=== PATIENT | male | born 1985 | race African-American/Black ===

== ENCOUNTER 2021-05-03 19:33 | Emergency (ER) | payer SELFPAY ==
[2021-05-03 19:34] VITALS: BP 126/86; PULSE 95; RESP 16; TEMP 37.7; O2SAT 97; BMI 23.1
[2021-05-03 19:35] VITALS: BP 126/86; PULSE 95; RESP 16; TEMP 37.7; O2SAT 97
--- NOTE | 2021-05-03 21:54 | ED.VIS.DENTA ---
HPI History of Present Illness Chief Complaint: Dental Informant: patient Narrative Narrative: Patient here significant other increasing swelling left lower jaw over the last 2 days. Fever today. Does have cavities. Denies hot or cold sensitivities. Currently does not have a dentist. Denies allergies. Prior similar symptoms: No PFSH PFSH Medical History no medical history Home Medications hydrocodone-acetaminophen 1 tab PO Q6H PRN 3 Days #12 tab 05/03/21 [Rx Last Taken Unknown] ibuprofen 600 mg PO Q6H PRN PRN #20 tab 05/03/21 [Rx Last Taken Unknown] penicillin V potassium 500 mg PO 4X/DAY #40 tab 05/03/21 [Rx Last Taken Unknown] Allergy/AdvReac Type Severity Reaction Status Date / Time No Known Allergies Allergy Verified 05/03/21 19:36 Surgical History no surgical history Social History Smoking Status: Current every day smoker tobacco type: cigarettes ROS ROS ED Constitutional Constitutional ED: Reports fever(s); Denies chills or sweats Eyes Eyes: Denies change in vision ENT ENT ED: Reports other Details: Left lower jaw swelling ; Denies dysphagia or sore throat Cardiovascular Cardiovascular: Denies chest pain, leg edema, palpitations or racing heartbeat Respiratory/Chest Respiratory/Chest: Denies cough, dyspnea or dyspnea on exertion Gastrointestinal Gastrointestinal: Denies abdominal pain, diarrhea, nausea or vomiting Genitourinary Genitourinary ED: Denies dysuria, hematuria or urinary frequency Musculoskeletal Musculoskeletal: Denies back pain, extremity pain or neck pain Integumentary Denies rash or wounds Neurologic Neurologic: Denies headache(s), paresthesias or weakness EXAM Physical Exam Const Vital Signs: 05/03/21 19:34 05/03/21 19:35 Temperature 100 F H 100 F H Temperature Source Temporal Temporal Pulse Rate 95 95 Respiratory Rate 16 16 Blood Pressure 126/86 H 126/86 H Blood Pressure Mean 99 99 Pulse Ox 97 97 Oxygen Delivery Method Room Air Room Air Positive well nourished and well developed General Appearance ED: well developed and NAD HEENT Reports moist mucous membranes HEENT Narrative: Swelling left lower jaw at mandibular angle. Oral examination noted focal dental decay tooth #18 and 19 down to the gumline. There is a large fluctuance noted at the gumline of tooth #19 tender to palpation. No sublingual edema. No trismus. normocephalic and atraumatic Eyes PERRL, EOMs intact bilaterally and conjunctivae normal General Eye ED: Yes normal appearance of both eyes Neck no lymphadenopathy and supple General: Negative for tenderness Chest Wall Chest: Negative for tenderness Resp normal respiratory effort and normal air movement Effort and Inspection: symmetric chest movement; Negative for respiratory distress Cardio regular rate, regular rhythm and no murmurs Peripheral Pulses: pulses 2+ throughout GI normal to inspection, nondistended, normoactive bowel sounds and non-tender Palpation: Negative for guarding or rebound tenderness present Back/Spine no CVA tenderness and no thoracic nor lumbar tenderness Extremity normal to inspection General Extremety ED: Negative for edema or tenderness General Extremity: Negative for edema Neuro oriented x3 and no sensory deficits noted Sensorium / Orientation: awake and alert Skin no rashes or lesions noted and no wounds MDM MDM MDM Narrative Medical decision making narrative: Patient low-grade temp of 100 on arrival. Exam concerns for focal dental abscess left lower gumline. Started on penicillin ibuprofen [place]. This was incised and drained in the ED copious exudative drainage. He is continue on antibiotics. He is given dental list for follow-up for definitive treatment. Return precautions. All questions were answered. Procedure note: Incision and drainage. Verbal consent. Left inferior alveolar block used with 5 cc bupivacaine 0.5%. Good analgesic control. 11 blade with straight incision to the focal fluctuance with copious exudative output. Patient allowed to rinse with water. Patient tolerated procedure well. Discharge Plan Triage Chief Complaint: Dental ED Provider: Pavan Gallego Dx/Rx/DC Orders Clinical Impression: Abscess, dental, Dental caries Instructions: Dental Abscess Prescriptions: New penicillin V potassium 500 MG tablet 500 mg PO 4X/DAY Qty: 40 RF: 0 ibuprofen 600 MG tablet 600 mg PO Q6H PRN PRN (Reason: pain) Qty: 20 RF: 0 hydrocodone-acetaminophen 5-325 mg tablet 1 tab PO Q6H PRN (Reason: pain) 3 Days Qty: 12 RF: 0 Primary Care Provider: Care Physician,No Primary Referrals: Care Physician,No Primary [Primary Care Provider] - Activity Restrictions/Additional Instructions: Prescription medication sent to your pharmacy. Follow-up with with dentist for definitive treatment. Disposition Disposition: Home, Self Care
[2021-05-03] MEDS: Ibuprofen 600 MG Tablet PO (22:05)
[2021-05-03] MEDS: Penicillin Vk 250 MG Tablet 500 MG PO (22:05)
[2021-05-03] MEDS: HYDROcodone Bitartrate/Apap 5/325 Tablet PO (22:05)
== END 2021-05-03 23:26 | disposition home or self-care (01) ==
PROVIDERS: Emergency Provider Emergency Medicine
DX: K04.7 Periapical abscess without sinus (principal); K02.9 Dental caries, unspecified; F17.210 Nicotine dependence, cigarettes, uncomplicated
CPT/HCPCS: 41800; 99283

== ENCOUNTER 2023-03-06 05:25 | Emergency (ER) | payer SELFPAY ==
[2023-03-06 05:25] VITALS: BP 146/92; PULSE 54; RESP 10; TEMP 36.6; O2SAT 100; BMI 19.8
--- NOTE | 2023-03-06 05:36 | EKG12_ITS ---
Test Reason : SYNCOPE Blood Pressure : / mmHG Vent. Rate : 061 BPM Atrial Rate : 061 BPM P-R Int : 128 ms QRS Dur : 092 ms QT Int : 442 ms P-R-T Axes : 064 062 063 degrees QTc Int : 444 ms Sinus rhythm with Premature atrial complexes Otherwise normal ECG Confirmed by MAURY RITCHIE, CONI ([id number]), editor magazine HOWIE KESSLER ([id number]) on 03/07/2023 9:35:41 AM Referred By: PL Confirmed By:CONI MENDIOLA MD
--- NOTE | 2023-03-06 05:36 | CT_ITS ---
INDICATION: trauma EXAMINATION: CT BRAIN - CT Head or Brain W/O Contrast Injection TECHNIQUE: Multiple axial images were obtained of the head without intravenous contrast. A radiation dose optimization technique was used for this scan. IV Contrast dosage and agent: None. COMPARISON: None FINDINGS: BRAIN PARENCHYMA: No intra- or extra-axial hemorrhage. No evidence of acute infarct. No intracranial mass or mass effect. Unremarkable white matter for age. There is preservation of the phan/white matter interface. Posterior fossa structures are unremarkable. CSF SPACES: Cerebral volume appropriate for age. No hydrocephalus. Basal cisterns are patent. CALVARIUM, SKULL BASE, PARANASAL SINUSES AND MASTOID AIR CELLS: No acute osseous finding. Paransasal sinuses are clear. Mastoid air cells are clear. ORBITS: Both globes, extraocular muscles, optic nerves and retrobulbar fat appear unremarkable. ASPECTS Score for Acute Strokes: 10 CT/Brain/Head without Contrast IMPRESSION: No CT evidence of acute intracranial hemorrhage or injury. Electronically Signed: Patrice Griffith MD at 6:27 EDT ,
--- NOTE | 2023-03-06 05:38 | EDS_ITS ---
HPI History of Present Illness Chief Complaint: Syncope Informant: patient and spouse/S.O. Narrative Narrative: Patient presents after a syncopal episode at home. Patient states that his alarm went off for work. He got up. He sat on the edge of the bed and just did not feel right. He evidently fell over and passed out. He remembers asking his for help. His states that she talk to him and said he did not feel right. He then fell over. He did hit the right side of his head on a carpeted floor. She states he was out for maybe 30 or 45 seconds before he started to come around. There is no seizure activity. He has never done this before. Patient does state that he has a little bit of a soreness over the right side of his face and head. He states is not a headache it is just sore where he hit. He has no chest pain or palpitations history. He does report a little bit of coughing over the last couple weeks but no productivity. He is a smoker and was counseled to quit. He has been eating and drinking normally. No fevers or chills. He occasionally has a beer but no drug use. He is overall generally pretty healthy. His wonders if panic attack could cause this because evidently does have some history of panic attacks and anxiety. PFSH PFSH Medical History no medical history Home Medications hydrocodone-acetaminophen 5-325mg 5mg-325mg 1 tab PO Q6H PRN pain 3 days #12 tabs 05/03/21 [Rx Last Taken Unknown] ibuprofen 600 mg tablet 600 mg PO Q6H PRN PRN pain #20 tabs 05/03/21 [Rx Last Taken Unknown] penicillin V potassium 500 mg tablet 500 mg PO 4X/DAY #40 tabs 05/03/21 [Rx Last Taken Unknown] Allergy/AdvReac Type Severity Reaction Status Date / Time No Known Allergies Allergy Verified 05/03/21 19:36 Surgical History no surgical history Social History Smoking Status: Current every day smoker tobacco type: cigarettes ROS ROS ED Constitutional Constitutional ED: Denies chills, fever(s), sweats or weight loss Eyes Eyes: Denies blurry vision, change in vision or diplopia ENT ENT ED: Denies rhinorrhea or sore throat Cardiovascular Cardiovascular: Denies chest pain, palpitations or racing heartbeat Respiratory/Chest Respiratory/Chest: Reports cough; Denies dyspnea, dyspnea on exertion or sputum Gastrointestinal Gastrointestinal: Reports nausea, vomiting and other Details: Patient did vomit at home but does not feel nauseated now ; Denies abdominal pain Genitourinary Genitourinary ED: Denies hematuria Musculoskeletal Musculoskeletal: Denies arthralgias, back pain, myalgias or neck pain Integumentary Denies rash Neurologic Neurologic: Reports headache(s) and other Details: Patient states he really has pain in the right side of his head where he hit and is not really a headache. ; Denies paresthesias or weakness Psychiatric Psychiatric: Reports anxiety Endocrine Endocrinology: Denies polydipsia or polyuria Hematologic/Lymphatic Hematologic/Lymphatic: Denies easy bleeding or easy bruising Allergic/Immunologic Allergic/Immunologic ED: Denies urticaria EXAM Physical Exam Narrative Exam Narrative: Patient is awake he is alert he is sitting in bed. He is cooperative. He does seem a bit scared and anxious but that certainly understandable considering what happened. He has a little bit of tenderness over near the temporal area on the right side of his head. But I do not see any swelling abrasions or contusions at this point. No step-off. No nasal bleeding. Neck shows no tenderness or pain with motion Lungs are clear bilaterally takes easy unlabored breathing. Saturations are normal at 100% on room air showing no hypoxia. Heart is regular. Rate is a little slow at about 55-60 but it does appear to be a normal sinus rhythm on the monitor without ectopy. I do not hear any murmurs. He has excellent normal pulses. No cervical thoracic or lumbar tenderness. Abdomen is soft completely nontender nondistended bowel sounds are normal. Extremities show no sign of tenderness abrasions deformities swelling or distended veins. Neurologically he is awake and alert. He had a little trouble telling his birthday at first. But he knows where he is the year president [employer] and he recognized his birthdate. But he is occasionally just a little bit slow to answer. Const Vital Signs: 03/06/23 05:25 03/06/23 05:25 Temperature 97.8 F Temperature Source Temporal Pulse Rate 54 L Respiratory Rate 10 L Respiratory Effort Normal Respiratory Pattern Normal Blood Pressure 146/92 H Blood Pressure Mean 110 Pulse Ox 100 MDM MDM MDM Narrative Medical decision making narrative: My independent her potation the patient's single view to image x-ray of the chest shows no acute process this is similar to final reading. My independent interpretation of the CT of his head shows no mass or bleeding and this is similar to final radiology reading. Patient CBC is normal other than a low white count which is not new. He has had that on prior studies. Patient's electrolytes show no marked abnormalities. Glucose was normal. He is not showing signs of significant dehydration. Patient is liver function test showed no marked abnormalities. Patient's alcohol level is elevated at 59. Toxicology was only positive for cannabis. Patient feels well now. His work-up is negative. His vitals have been normal here. I think his syncopal episode was likely a combination of events. It may be somewhat related to mild alcohol cannabis use. But he also woke up with the start when his alarm went off. Just shortly after this he had a syncopal episode. He has been fine since. He actually walked into the department and walked around here. We discussed reasons to return and follow-up Lab Data Attestation: I reviewed the patient's lab results. Labs: Laboratory Results - last 24 hr 03/06/23 03/06/23 05:32 06:00 WBC 3.5 L RBC 4.49 L Hgb 13.6 Hct 41.7 MCV 92.9 MCH 30.3 MCHC 32.6 RDW Std Deviation 44.9 H RDW Coeff of Brad 13.2 Plt Count 279 MPV 9.9 Immature Gran % (Auto) 0.300 Neut % (Auto) 60.1 Lymph % (Auto) 23.5 Baxter % (Auto) 10.8 H Eos % (Auto) 4.2 Baso % (Auto) 1.1 H Absolute Neuts (auto) 2.1 Absolute Lymphs (auto) 0.83 Nucleated RBC % 0 Sodium 142 Potassium 4.1 Chloride 110 H Carbon Dioxide 25.0 Anion Gap 7 BUN 8 Creatinine 0.86 Estim Creat Clear Calc 120.54 Est GFR (MDRD) Af Amer 128 Est GFR (MDRD) Non-Af 106 BUN/Creatinine Ratio 9.4 L Glucose 95 Calcium 8.7 Total Bilirubin 0.30 AST 41 H ALT 44 Alkaline Phosphatase 84 Troponin I High Sens 6 Total Protein 8.4 H Albumin 3.8 Globulin 4.6 H Albumin/Globulin Ratio 0.8 L Urine Color Yellow Urine Clarity Clear Urine pH 5.0 Ur Specific [place] 1.020 Urine Protein 15 H Urine Glucose (UA) Normal Urine Ketones Negative Urine Occult Blood 25 H Urine Nitrite Negative Urine Bilirubin Negative Urine Urobilinogen Normal Ur Leukocyte Esterase 25 H Urine RBC 0 SEEN Urine WBC 0-5 SEEN Ur Squamous Epith Cells 0 SEEN Urine Bacteria 1+ Hyaline Casts 0-5 SEEN Urine Mucus 0 SEEN Urine Opiates Screen NEGATIVE Urine Methadone Screen NEGATIVE Ur Barbiturates Screen NEGATIVE Ur Phencyclidine Scrn NEGATIVE Ur Amphetamines Screen NEGATIVE MDMA (Ecstasy) Screen NEGATIVE U Benzodiazepines Scrn NEGATIVE Urine Cocaine Screen NEGATIVE U Cannabinoids Screen POSITIVE H Ur Drug Screen Comment Ethyl Alcohol 59.0 Radiography Diagnostic Testing: Clinical Impression(s) from Imaging Studies Brain CT 03/06/23 05:36 IMPRESSION: No CT evidence of acute intracranial hemorrhage or injury. Electronically Signed: Patrice Griffith MD at 6:27 EDT , Chest X-Ray 03/06/23 05:39 IMPRESSION: No radiographic evidence of acute cardiopulmonary disease. Electronically Signed: Patrice Griffith MD at 6:24 EDT , EKG Initial EKG: Comments: My independent interpretation the patient's EKG done for syncope shows a normal sinus rhythm with overall rate of 61. No ventricular ectopy. There is some PACs or slight respiratory variation no ST elevation or depression. AK interval, QRS duration and QTc are normal. Discharge Plan Triage Chief Complaint: Syncope ED Provider: Sunny He Dx/Rx/DC Orders Clinical Impression: Syncope Instructions: ED Fainting, Uncertain Cause Prescriptions: No Action penicillin V potassium 500 MG tablet 500 mg PO 4X/DAY Qty: 40 0RF ibuprofen 600 MG tablet 600 mg PO Q6H PRN PRN (Reason: pain) Qty: 20 0RF hydrocodone-acetaminophen 5-325 mg tablet 1 tab PO Q6H PRN (Reason: pain) 3 Days Qty: 12 0RF Stand Alone Forms: ED Work / School Excuse Primary Care Provider: Care Physician,No Primary Referrals: Barby Mcgowan MD [Med Staff - Maintenance Worker [employer]] - 3-5 Days if not improving Care Physician,No Primary [Primary Care Provider] - Disposition Disposition: Home, Self Care
--- NOTE | 2023-03-06 05:39 | RAD_ITS ---
INDICATION: cough EXAMINATION/TECHNIQUE: X-RAY - XR Chest 1 View COMPARISON: March 05, 2014. FINDINGS: LINES/DEVICES: None. LUNGS: No consolidation, edema or effusion. No pneumothorax. MEDIASTINUM AND CARDIOVASCULAR STRUCTURES: Cardiac silhouette not enlarged. BONES AND SOFT TISSUES: Unremarkable. RAD/Chest 1 View (Portable) IMPRESSION: No radiographic evidence of acute cardiopulmonary disease. Electronically Signed: Patrice Griffith MD at 6:24 EDT ,
[2023-03-06 05:51] LABS: Absolute Lymphocyte Count 0.83 X10^3/uL (0.83-4.51); Absolute Neutrophil Count 2.1 X10^3/uL (2.0-7.7); Basophil# 0.04 X10^3/uL; Basophil% 1.1 % (0-1); Eosinophil# 0.15 X10^3/uL; Eosinophils% 4.2 % (0-5); Hematocrit 41.7 % (40-54); Hemoglobin 13.6 g/dL (13.0-16.5); Lymphocyte # 0.83 X10^3/ul (0.83-4.51); Lymphocyte % 23.5 % (19-41); Mean Corp Hgb Conc 32.6 g/dL (32-36); Mean Corpuscular Hgb 30.3 pg (27.0-32.0); Mean Corpuscular Volume 92.9 fL (80-94); Mean Platelet Vol. 9.9 fl (6.2-12.0); Monocyte# 0.38 X10^3/uL; Monocyte% 10.8 % (0-10); NRBC Flagged by Analyzer 0 % (0-5); Neutrophil # 2.12 X10^3/uL (2.7-7.7); Neutrophil % 60.1 % (47-70); Platelet Count 279 K/mm3 (150-450); RBC Distribution Width CV 13.2 % (11.6-14.6); RBC Distribution Width SD 44.9 fl (35.1-43.9); Red Blood Count 4.49 M/mm3 (4.6-6.2); White Blood Count 3.5 K/mm3 (4.4-11.0)
[2023-03-06 06:03] LABS: Mucous, Urine 0 SEEN /hpf (<or=2+); Red Blood Cells-Urine 0 SEEN /hpf (0-5); Squamous Epithelial Cells - UA 0 SEEN /hpf (0-5)
[2023-03-06 06:13] LABS: ALB/GLOB Ratio 0.8 RATIO (0.9-2.4); AST(SGOT) 41 U/L (15-37); Alanine Aminotransfer ALT/SGPT 44 U/L (16-61); Albumin, Serum 3.8 g/dL (3.2-5.0); Alkaline Phosphatase 84 U/L (45-117); Anion Gap 7 (5-15); BUN 8 mg/dL (7-18); BUN/Creat Ratio 9.4 RATIO (10-20); Calcium,Total 8.7 mg/dL (8.5-10.1); Chloride 110 mmol/L (98-107); Creatinine, Serum 0.86 mg/dL (0.70-1.30); EST Glomerular Filtration Rate 106 mL/min (>60); Est Glom Filt Rate - Afr Amer 128 mL/min (>60); Estimated Creatinine Clearance 120.54 ml/min; Globulin 4.6 g/dL (2.2-4.2); Glucose 95 mg/dL (74-106); Potassium 4.1 mmol/L (3.5-5.1); Protein, Total 8.4 g/dL (6.4-8.2); Sodium Level 142 mmol/L (136-145); Troponin-I HS 6 pg/mL (3.0-78.0)
[2023-03-06 06:16] LABS: Color, Urine Yellow (Yellow); Glucose, Dipstick Normal (Normal); Ketone-Dipstick Negative (Negative); Leukocyte Esterase-Dipstick 25 /ul (Negative); Nitrite-Dipstick Negative (Negative); Occult Blood-Urine 25 /ul (Negative); Protein-Dipstick 15 mg/dl (Negative); Urine Bilirubin Dipstick Negative (Negative); Urine Clarity Clear (Clear); Urine Urobilinogen Normal (Normal)
[2023-03-06 06:32] LABS: Amphetamine Urine VISTA NEGATIVE (<1000 ng/mL); Barbiturate Urine VISTA NEGATIVE (< 200 ng/mL); Benzodiazepine Urine VISTA NEGATIVE (< 200 ng/mL); Cocaine Urine VISTA NEGATIVE (< 300 ng/mL); Ecstacy Urine VISTA NEGATIVE (< 500 ng/mL); Methadone Urine VISTA NEGATIVE (< 300 ng/mL); PCP Urine VISTA NEGATIVE (< 25 ng/mL); THC Urine VISTA POSITIVE (< 50 ng/mL); Vista UDS pH Range 5
[2023-03-06 06:37] LABS: Bacteria 1+ /hpf (None Seen); White Blood Cells 0-5 SEEN /hpf (0-5)
[2023-03-06 06:38] LABS: Hyaline Cast 0-5 SEEN /lpf (0-5)
[2023-03-06 06:59] VITALS: BP 129/98
== END 2023-03-06 06:59 | disposition home or self-care (01) ==
PROVIDERS: Emergency Provider Emergency Medicine; Visit Provider Emergency Medicine
DX: R55 Syncope and collapse (principal); F17.210 Nicotine dependence, cigarettes, uncomplicated; F41.9 Anxiety disorder, unspecified; R51.9 Headache, unspecified
CPT/HCPCS: 70450; 71045; 80053; 80307; 81001; 82077; 84484; 85025; 93005; 96360; 99284; J7040; A4216

== ENCOUNTER 2024-10-01 23:20 | Emergency (ER) | payer SELFPAY ==
[2024-10-01 23:21] VITALS: BP 122/76; PULSE 87; RESP 16; TEMP 36.4; O2SAT 99
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
--- NOTE | 2024-10-01 23:41 | RAD_ITS ---
PROCEDURE: KNEE 4 OR MORE VIEWS REASON FOR EXAM: Injury TECHNIQUE: 4 view(s) of the right knee COMPARISON: None. FINDINGS: No fracture, dislocation or evidence of joint effusion. The joint spaces appear within limits. The soft tissues appear within limits. RAD/Knee 4 or More Views IMPRESSION: No fracture, dislocation or evidence of joint effusion. Reading Location: [id number]
[2024-10-01] MEDS: Ondansetron ODT 4 MG Tablet PO (23:54)
[2024-10-01] MEDS: morphine 10 MG/ML Syringe 8 MG IM (23:55)
== END 2024-10-02 00:58 | disposition home or self-care (01) ==
PROVIDERS: Emergency Provider Emergency Medicine; Visit Provider Emergency Medicine
DX: S76.111A Strain of right quadriceps muscle, fascia and tendon, initial encounter (principal); S80.01XA Contusion of right knee, initial encounter; V00.141A Fall from scooter (nonmotorized), initial encounter; F17.210 Nicotine dependence, cigarettes, uncomplicated
CPT/HCPCS: 73564; 96372; 99284